=== PATIENT | female | born 1975 ===

== ENCOUNTER 2019-08-29 16:04 | Emergency (ER) | payer OTHER ==
[~2019-08-29] VITALS: Ht 165.1 cm; Wt 74.4 kg
[~2019-08-29 16:04] MED LIST: CODE1TAB37 PO; Mylicon 125MG PO
== END 2019-08-29 19:13 | disposition home or self-care (01) ==
LOC: ER 16:04
DX: S90.02XA Contusion of left ankle, initial encounter (principal); W10.9XXA Fall (on) (from) unspecified stairs and steps, initial encounter; Y93.89 Activity, other specified; Y92.69 Other specified industrial and construction area as the place of occurrence of the external cause; Y99.8 Other external cause status